=== PATIENT | female | born 1995 | race Caucasian/White ===

== ENCOUNTER 2016-04-15 06:04 | Emergency (ER) | payer OTHER ==
[2016-04-15 06:11] VITALS: BP 116/55
--- NOTE | 2016-04-15 07:07 | ER Document Report ---
ED ENT - General Mode of Arrival: Ambulatory Information source: Patient TRAVEL OUTSIDE OF THE [place] IN LAST 30 DAYS: No - HPI Patient complains to provider of: Throat problem Associated symptoms: Other - See above - General Chief Complaint: Sore Throat Stated Complaint: SORE THROAT Notes: Patient is a 20 year old female who presents to the emergency department complaining of a sore throat. Patient reports the pain began last night and is located on the left side of her throat. Patient also complains of pain with swallowing and pain with talking secondary to the sore throat. Patient denies fever and cough. Patient is not on any regular medications. Patient states she is allergic to Zofran and reports that her teeth, which are mostly all baby teeth, become brittle when given the medication. (ALICIA BOLAÑOS) - Related Data Allergies/Adverse Reactions: ondansetron HCl [From Zofran] Allergy (Verified 04/15/16 06:12) Penicillins Allergy (Verified 04/15/16 06:12) Sulfa (Sulfonamide Antibiotics) Allergy (Verified 04/15/16 06:12) Past Medical History - General Information source: Patient - Social History Smoking Status: Unknown if Ever Smoked Chew tobacco use (# tins/day): No Frequency of alcohol use: None Drug Abuse: None Family History: Reviewed & Not Pertinent, Arthritis, DM, Hyperlipidemia, Malignancy, Thyroid Disfunction Patient has suicidal ideation: No Patient has homicidal ideation: No Renal/ Medical History: Reports: Hx Kidney Stones GI Medical History: Reports: Hx Gastritis, Hx Gastroesophageal Reflux Disease Musculoskeltal Medical History: Reports Hx Musculoskeletal Trauma Psychiatric Medical History: Reports: Hx Anxiety Traumatic Medical History: Reports: Hx Fractures - Immunizations Immunizations up to date: Yes Hx Diphtheria, Pertussis, Tetanus Vaccination: Yes Review of Systems - Review of Systems Constitutional: denies: Fever EENT: See HPI, Throat pain Cardiovascular: No symptoms reported Respiratory: denies: Cough Gastrointestinal: No symptoms reported Genitourinary: No symptoms reported Female Genitourinary: No symptoms reported Musculoskeletal: No symptoms reported Skin: No symptoms reported Hematologic/Lymphatic: No symptoms reported Neurological/Psychological: No symptoms reported -: Yes All other systems reviewed and negative Physical Exam - Vital signs Interpretation: Normal - General General appearance: Appears well, Alert - HEENT Head: Normocephalic, Atraumatic Pharynx: Other - Pinkish with hard lumpy areas Neck: Other - Tenderness to palpation of left anterior cervical glands, no tenderness to right side - Respiratory Respiratory status: No respiratory distress Chest status: Nontender Breath sounds: Normal Chest palpation: Normal - Cardiovascular Rhythm: Regular Heart sounds: Normal auscultation Murmur: No - Back Back: Normal, Nontender - Extremities General upper extremity: Normal inspection General lower extremity: Normal inspection - Neurological Neuro grossly intact: Yes Cognition: Normal Orientation: AAOx4 [place] Coma Scale Eye Opening: Spontaneous [place] Coma Scale Verbal: Oriented [place] Coma Scale Motor: Obeys Commands [place] Coma Scale Total: 15 Speech: Normal - Psychological Associated symptoms: Normal affect, Normal mood - Skin Skin Temperature: Warm Skin Moisture: Dry Skin Color: Normal Course - Re-evaluation Re-evalutation: 04/15/16 08:17 Left-sided posterior pharyngeal pain. Has clinical appearance of a viral pharyngitis. Rapid strep was negative. There is no fever. (DILIP ORTA) - Vital Signs Vital signs: Temp Pulse Resp BP Pulse Ox 97.8 F 83 16 116/55 L 99 04/15/16 06:10 04/15/16 06:10 04/15/16 06:10 04/15/16 06:10 04/15/16 06:10 (ALICIA BOLAÑOS) (DILIP ORTA) Discharge - Discharge Clinical Impression: Pharyngitis Qualifiers: Pharyngitis/tonsillitis etiology: unspecified etiology Qualified Code(s): J02.9 - Acute pharyngitis, unspecified Condition: Stable Disposition: HOME, SELF-CARE Additional Instructions: Sore Throat: Sore throats may be caused by viruses, bacteria, or fungi. Most are due to a virus, and must get better on their own. Bacterial sore throats, particularly those due to "strep," need treatment with antibiotics. To relieve symptoms, take acetaminophen for pain. Sip clear liquids frequently, or eat popsicles or ice chips. Anesthetic sprays or lozenges may help. Make sure the air in the room is not too dry. Avoid using decongestants or antihistamines. Call the doctor if there is no improvement in two days, or if you have difficulty breathing, increasing throat pain, high fever, rash, or frequent vomiting. Viral Syndrome The physician has diagnosed a viral infection. Viruses not only cause "colds," but can cause many different symptoms including generalized aching, fever, headache, cough, diarrhea, nausea, vomiting, sore throat and fatigue. The treatment, for the most part, is simply relief of symptoms. This means that antibiotics are usually not given. Rest, fluids, anti-inflammatory pain medications are recommended. Use good handwashing to avoid passing the virus to others. Contact the physician if you develop any new or unusual symptoms such as severe headache, stiff neck, high fever, chest pain, productive cough, or shortness of breath. You should be rechecked if you don't see marked improvement within seven to 10 days. YOU APPEAR TO HAVE A VIRAL SORE THROAT. TAKE TYLENOL AND MOTRIN OR ALEVE FOR PAIN. DRINK COOL CLEAR LIQUIDS. REST. TRY THROAT LOZENGES OR THROAT SPRAYS FOR RELIEF. FOLLOW UP WITH YOUR DOCTOR IF NOT IMPROVING. RETURN TO THE EMERGENCY ROOM IF ANY NEW OR WORSENING SYMPTOMS. Scribe Attestation: 04/15/16 08:24 I personally performed the services described in the documentation, reviewed and edited the documentation which was dictated to the scribe in my presence, and it accurately records my words and actions. (DILIP ORTA) Scribe Documentation - Scribe Written by [email or web address]:: DILIP ORTA MD, SCRIBE 04/15/1617 Acting as scribe for: Dr. Orta (ALICIA BOLAÑOS) (DILIP ORTA)
== END 2016-04-15 08:45 | disposition home or self-care (01) ==
LOC: ER 06:04
DX: J02.9 Acute pharyngitis, unspecified (principal); Z88.8 Allergy status to other drugs, medicaments and biological substances; Z88.2 Allergy status to sulfonamides; Z88.0 Allergy status to penicillin
CPT/HCPCS: 87070; 87077; 87880; 99283